=== PATIENT | female | born 1960 | race Caucasian/White ===

== ENCOUNTER 2019-03-15 05:41 | Inpatient (IN) | payer MEDICAID ==
[2019-03-10 13:52] LABS: BASOPHILS % (AUTO) 0.4 % (0-1); EOSINOPHILS % (AUTO) 0.6 % (0-6); LYMPHOCYTES # (AUTO) 1.4 X10'3 (1.1-4.8); MEAN CORPUSCULAR HEMOGLOBIN 33.8 PG (27.0-31.0); MEAN CORPUSCULAR HGB CONC 34.3 g/dL (33.0-36.5); MEAN CORPUSCULAR VOLUME 98.4 FL (78-98); MEAN PLATELET VOLUME 8.1 FL (7.4-10.4); MONOCYTES # (AUTO) 0.5 X10'3 (0-0.9); MONOCYTES % (AUTO) 7.2 % (2-12); NEUTROPHILS # (AUTO) 5.2 X10'3 (1.8-7.7); NEUTROPHILS % (AUTO) 71.8 % (42-75); PRE OP HEMATOCRIT 44.4 % (35.0-45.0); PRE OP HEMOGLOBIN 15.3 g/dL (12.0-16.0); PRE OP PLATELET COUNT 224 X10'3 (140-440); RED BLOOD COUNT 4.52 X10'6 (4.20-5.60); RED CELL DISTRIBUTION WIDTH 12.8 % (11.5-14.5)
[2019-03-10 13:56] LABS: CLARITY,URINE CLEAR (Clear); COLOR,URINE YELLOW (Yellow); GLUCOSE, URINE NEGATIVE (Neg); KETONES,URINE NEGATIVE (Neg); LEUKOCYTE ESTERASE ,URINE TRACE (Neg); NITRITES, URINE NEGATIVE (Neg); OCCULT BLOOD,URINE NEGATIVE (Neg); PROTEIN,URINE NEGATIVE (Neg); UROBILINOGEN,URINE 0.2 E.U/dL (0.2-1.0)
[2019-03-10 14:08] LABS: UA COLLECTION TYPE CLN CATCH MIDSTREAM
[2019-03-10 14:16] LABS: BACTERIA,URINE FEW /HPF (Neg); MUCUS STRANDS FEW /LPF (Neg); SQUAMOUS EPITHELIAL CELL,UR MODERATE /LPF (FEW); WBC,URINE 0-4 /HPF (0-4)
[2019-03-10 14:19] LABS: ALBUMIN 3.5 G/DL (3.4-5.0); ALBUMIN/GLOBULIN RATIO 0.8 (1.1-1.5); ALKALINE PHOSPHATASE 99 IU/L (46-116); BLOOD UREA NITROGEN 14 MG/DL (7-18); BUN/CREATININE RATIO 19.7 (6.6-38.0); CALCIUM 9.3 MG/DL (8.5-10.1); CHLORIDE 103 MMOL/L (99-107); CREATININE 0.71 MG/DL (0.40-0.90); PRE OP ALT 51 U/L (30-65); PRE OP ANION GAP 9 (8-16); PRE OP AST 27 U/L (10-37); PRE OP BILIRUB, TOTAL 0.5 MG/DL (0.0-1.0); PRE OP GLUCOSE 118 MG/DL (70-104); PRE OP POTASSIUM 3.5 MMOL/L (3.4-5.1); PRE OP SODIUM 139 MMOL/L (135-145); TOTAL CARBON DIOXIDE 26.6 MMOL/L (24-32); TOTAL PROTEIN 7.9 G/DL (6.4-8.2); eGFR 84 ML/MIN
[~2019-03-15] VITALS: Ht 165.1 cm; Wt 75.8 kg
[2019-03-15] VITALS (15 sets, daily range): BP systolic 122–157; BP diastolic 67–86
[~2019-03-15 05:41] MED LIST: ATOR10TA70 PO; BUPR150T6 PO; LISI30TA4 PO; MULT-1085 PO; cefazolin/dext.iso 2gm/100 ML IV ONE; famotidine 20mg tablet PO ONE; gabapentin 400mg capsule PO ONE; mupirocin 2% nasal ointment 1gm UD NS ONE; ringers solution, lacted 1,000 ML IV SCH
[2019-03-15] MEDS ORDERED: LIDOcaine 1% (10mg/ml) 2ml vial ONE (06:00)
[2019-03-15] MEDS ORDERED: sevoflurane 250ml liquid IH ONE (06:54)
[2019-03-15] MEDS ORDERED: ondansetron/PF 4mg/2ml inj ONE (06:54)
[2019-03-15] MEDS ORDERED: midazolam 2 mg/2 ml injection ONE ×4 (06:57→07:02)
[2019-03-15] MEDS ORDERED: fentaNYL /PF 50mcg/ml 5ml ampule ONE ×2 (06:58→07:33)
[2019-03-15] MEDS ORDERED: rocuronium 10mg/ml inj IV ONE ×2 (07:14→07:19)
[2019-03-15] MEDS ORDERED: propofol inj 20 ML IV ONE (07:15)
[2019-03-15] MEDS ORDERED: dexamethasone sod phosphate 4mg/ml inj. ONE (07:15)
[2019-03-15] MEDS ORDERED: glycopyrrolate 0.2mg/ml inj ONE (07:15)
[2019-03-15] MEDS ORDERED: LIDOcaine 2% (20mg/ml) 5ml vial ONE (07:15)
[2019-03-15] MEDS ORDERED: neostigmine methylsulfate 1 MG/ML 10ml vial ONE (07:16)
[2019-03-15] MEDS ORDERED: labetalol 5mg/ml 20ml inj. IV ONE (07:35)
[2019-03-15] MEDS ORDERED: hydrALAZINE 20mg/ml inj. IV ONE (07:41)
[2019-03-15] MEDS ORDERED: ringers solution, lacted 1,000 ML IV SCH (07:44)
[2019-03-15] MEDS ORDERED: labetalol 20mg/4ml (5mg/ml) syringe IV PRN (07:45)
[2019-03-15] MEDS ORDERED: ondansetron/PF 4mg/2ml inj IV PRN ×2 (07:45→09:25)
[2019-03-15] MEDS ORDERED: fentaNYL/PF 50MCG/1 ML 2ML syringe IV PRN ×2 (07:45)
[2019-03-15] MEDS ORDERED: morphine 4 MG/ML inj SYRINge IV PRN ×3 (07:45→09:25)
[2019-03-15] MEDS ORDERED: hydrALAZINE 20mg/ml inj. IV PRN (07:45)
[2019-03-15] MEDS ORDERED: ROPIVAcaine 0.5% (5mg/ml) 30ml vial ONE (08:54)
[2019-03-15] MEDS ORDERED: acetaminophen 1,000mg/100ml IV 100 ML IV ONE ×2 (08:56)
[2019-03-15] MEDS ORDERED: metoclopramide 5 mg/ml inj IV PRN (09:25)
[2019-03-15] MEDS ORDERED: magnesium hydroxide 30ml (MOM) UD suspension PO PRN (09:25)
--- NOTE | 2019-03-15 09:29 | NUR ---
Received from OR via BED, accompanied by Anesthesiologist DR COELLO and report given by Anesthesiologist. PT DROWSY, NO S/S OF DISTRESS/DISCOMFORT, CHEST W/MEDIASTINUM ISLAND DRSG COVERING INCISION, CDI, CT TO MEDIASTINUM W/S/S DRAINAGE, AIR LEAK NOTED, DR NICE AWARE, CXR OBTAINED, ABG DRAWN AND RESULTED, PT AWAKE, DENIES PAIN, PLACED ON NC 1 LITER. Addendum: 03/15/19 at 1003 by Michelle Kohler RN Amended: Links added.
[2019-03-15 09:50] LABS: ABG BASE EXCESS -3.8 mmol/L (-2.0-3.0); ABG HCO3 22.6 mmol/L (22.0-26.0); ABG OXYGEN SATURATION 96.8 % (95-98); ABG PCO2 (T) 46.5 mmHg (32.0-45.0); ABG PH (T) 7.305 (7.350-7.450); FCOHb 1.2 % (0.5-1.5); FLOW 15 L/min; FMetHb 0.2 % (0.3-1.12); FO2Hb 95.4 % (94-100); TOTAL HEMOGLOBIN 13.4 G/dl (12.0-16.0)
--- NOTE | 2019-03-15 09:55 | NUR ---
SWITCHED PT TO NC 1LPM FOR SPOT OF 96% FROM SIMPLE MASK AT 15LPM PER ABG RESULTS MELANIE BOWLING
[2019-03-15] MEDS: morphine 4 MG/ML inj SYRINge IV PRN ×2 (10:07→10:13)
--- NOTE | 2019-03-15 10:50 | NUR ---
ERROR IN PAIN MEDICATION ASSESSMENT, CHEST PAIN IS ANTERIOR, MIDLINE. Addendum: 03/15/19 at 1050 by Michelle Kohler RN Amended: Links added.
[2019-03-15] MEDS: albuterol 2.5 MG/3 ML nebule NEB SCH ×4 (11:00→23:00)
--- NOTE | 2019-03-15 11:09 | NUR ---
RADIAL ART LINE D/CD AND DRSG APPLIED, PT STATES PAIN TOLERABLE AND IMPROVED, Report called to receiving nurse. Transferred via BED ON CM AND CT TO PORTABLE SUCTION, NO Belongings, RECEIVING RN AT BEDSIDE TO RECEIVE PT, PTS AND FAMILY PRESENT. Special Issues communicated to receiving nurse. YES. Addendum: 03/15/19 at 1123 by Michelle Kohler RN Amended: Links added.
[2019-03-15 12:43] LABS: BASOPHILS % (AUTO) 0.2 % (0-1); EOSINOPHILS % (AUTO) 0 % (0-6); HEMATOCRIT 40.8 % (35.0-45.0); HEMOGLOBIN 13.7 g/dl (12.0-16.0); LYMPHOCYTES # (AUTO) 0.7 X10'3 (1.1-4.8); LYMPHOCYTES % (AUTO) 5.6 % (21-51); MEAN CORPUSCULAR HEMOGLOBIN 33.4 PG (27.0-31.0); MEAN CORPUSCULAR HGB CONC 33.5 g/dL (33.0-36.5); MEAN CORPUSCULAR VOLUME 99.5 FL (78-98); MEAN PLATELET VOLUME 8.4 FL (7.4-10.4); MONOCYTES # (AUTO) 0.2 X10'3 (0-0.9); MONOCYTES % (AUTO) 1.9 % (2-12); NEUTROPHILS # (AUTO) 11.7 X10'3 (1.8-7.7); NEUTROPHILS % (AUTO) 92.3 % (42-75); PLATELET COUNT 190 X10'3 (140-440); WHITE BLOOD COUNT 12.7 X10'3 (4.5-11.0)
[2019-03-15 12:45] LABS: ALBUMIN 3.2 G/DL (3.4-5.0); ANION GAP 7 (8-16); BLOOD UREA NITROGEN 11 MG/DL (7-18); BUN/CREATININE RATIO 15.3 (6.6-38.0); CALCIUM 8.9 MG/DL (8.5-10.1); CHLORIDE 107 MMOL/L (99-107); CREATININE 0.72 MG/DL (0.40-0.90); GLUCOSE 171 MG/DL (70-104); SODIUM 141 MMOL/L (135-145); TOTAL CARBON DIOXIDE 27.1 MMOL/L (24-32); eGFR 83 ML/MIN
[2019-03-15 12:50] LABS: POTASSIUM 4.3 MMOL/L (3.5-5.1)
[2019-03-15] MEDS: ketorolac tromethamine 15mg/ml inj. IV SCH ×2 (14:21→19:36)
[2019-03-15] MEDS: ceFAZolin 1GM/D5W- ADD-VANTAGE 50 ML IV SCH (16:44)
--- NOTE | 2019-03-15 18:26 | NUR ---
Problems reprioritized. Patient report given, questions answered & plan of care reviewed with Mago LOMELI and Suly LOMELI.
--- NOTE | 2019-03-15 18:27 | NUR ---
Orienteer documentation: I have reviewed and agree with all interventions, assessments performed and documented by Jacki LOMELI.
--- NOTE | 2019-03-15 18:30 | NUR ---
Patient in room MED 316. I have received report from ARMANI Allen and had the opportunity to ask questions and assume patient care.
[2019-03-15] MEDS: gabapentin 300mg capsule PO SCH (19:38)
[2019-03-15] MEDS: sennosides/docusate sodium tablet PO SCH (20:00)
[2019-03-15] MEDS: docusate sod 100mg capsule PO SCH (20:00)
[2019-03-16] MEDS: ceFAZolin 1GM/D5W- ADD-VANTAGE 50 ML IV SCH (00:24)
[2019-03-16 02:00] VITALS: BP 128/66
[2019-03-16] MEDS: ketorolac tromethamine 15mg/ml inj. IV SCH ×2 (02:11→07:31)
--- NOTE | 2019-03-16 02:46 | NUR ---
Patient in room MED 316. I have received report from Alejandro LOMELI and had the opportunity to ask questions and assume patient care. Addendum: 03/16/19 at 0608 by Suly Escalona RN wrong time, received report from Alejandro LOMELI at 1800 on 03/15/19 Patient in room MED 316. I have received report from Alejandro LOMELI and had the opportunity to ask questions and assume patient care.
[2019-03-16] MEDS: albuterol 2.5 MG/3 ML nebule NEB SCH ×6 (03:00→22:34)
--- NOTE | 2019-03-16 05:48 | NUR ---
Orienteer documentation: I have reviewed and agree with all interventions, assessments performed and documented by ARMANI Tubbs. Orienteer Medication Administration: For this medication-pass time frame, all medication were reviewed, dispensed, administered and documented per hospital policy by ARMANI Tubbs.
[2019-03-16 06:00] VITALS: BP 162/80
--- NOTE | 2019-03-16 06:28 | NUR ---
Problems reprioritized. Patient report given, questions answered & plan of care reviewed with ARMANI Allen.
--- NOTE | 2019-03-16 06:36 | NUR ---
Patient in room MED 316. I have received report from Dominick and had the opportunity to ask questions and assume patient care.
[2019-03-16] MEDS ORDERED: furosemide 40mg/4ml inj IV ONE (07:10)
[2019-03-16] MEDS: lisinopril 10 MG tablet PO SCH (07:25)
[2019-03-16] MEDS: buPROPion SR 150mg tablet PO SCH (07:27)
[2019-03-16] MEDS: gabapentin 300mg capsule PO SCH ×2 (07:27→20:09)
[2019-03-16] MEDS: atorvastatin 10mg tablet PO SCH (07:27)
[2019-03-16] MEDS: multivitamins, therapeutics tablet PO SCH (07:28)
[2019-03-16] MEDS: docusate sod 100mg capsule PO SCH ×2 (07:30→20:09)
[2019-03-16] MEDS: sennosides/docusate sodium tablet PO SCH ×2 (07:37→20:09)
[2019-03-16] MEDS ORDERED: ALPRAZolam 0.25mg tablet PO PRN (08:40)
[2019-03-16 10:02] LABS: ALBUMIN 3.3 G/DL (3.4-5.0); ANION GAP 8 (8-16); BLOOD UREA NITROGEN 11 MG/DL (7-18); BUN/CREATININE RATIO 11.6 (6.6-38.0); CALCIUM 9.2 MG/DL (8.5-10.1); CHLORIDE 106 MMOL/L (99-107); CREATININE 0.95 MG/DL (0.40-0.90); GLUCOSE 164 MG/DL (70-104); POTASSIUM 3.4 MMOL/L (3.5-5.1); SODIUM 142 MMOL/L (135-145); TOTAL CARBON DIOXIDE 28.4 MMOL/L (24-32); eGFR 60 ML/MIN
[2019-03-16] MEDS ORDERED: magnesium 2GM in 50ml NS 50 ML IV PRN (10:30)
[2019-03-16] MEDS ORDERED: potassium CL 10mEq/100ml bag 100 ML IV PRN (10:30)
[2019-03-16] MEDS ORDERED: potassium Cl 20 mEq SR tablet PO PRN (10:30)
[2019-03-16] MEDS ORDERED: magnesium 4gm in 100ml NS 100 ML IV PRN (10:30)
[2019-03-16] MEDS ORDERED: magnesium Cl slow-release 64mg tablet PO PRN (10:30)
[2019-03-16 11:00] VITALS: BP 106/69
[2019-03-16 11:11] LABS: MAGNESIUM 2.1 MG/DL (1.5-2.4)
--- NOTE | 2019-03-16 12:00 | NUR ---
Patient in room MED 316. I have received report from Alejandro LOMELI and had the opportunity to ask questions and assume patient care.
[2019-03-16] MEDS: potassium Cl 20 mEq SR tablet PO PRN ×3 (12:06→20:10)
[2019-03-16] MEDS: HYDROcodone/acetaminophen 10/325mg tab PO PRN ×3 (13:17→22:17)
[2019-03-16 15:25] VITALS: BP 135/73
[2019-03-16 18:00] VITALS: BP 150/98
--- NOTE | 2019-03-16 18:22 | NUR ---
Patient in room MED 316. I have received report from Himanshu and had the opportunity to ask questions and assume patient care.
--- NOTE | 2019-03-16 18:23 | NUR ---
Problems reprioritized. Patient report given, questions answered & plan of care reviewed with ARMANI Tubbs.
--- NOTE | 2019-03-16 18:23 | NUR ---
Orientee documentation: I have reviewed and agree with all interventions, assessments performed and documented by Jennifer LOMELI. Orientee Medication Administration: For this medication-pass time frame, all medication were reviewed, dispensed, administered and documented per hospital policy by Jennifer LOMELI.
--- NOTE | 2019-03-16 20:22 | NUR ---
Respiratory request for LauraA Lena York. please do RT TX before 2300 if possible, please and thanks. ACCE [id number], Suly RN Will bundle care per patient request
[2019-03-16 22:00] VITALS: BP 150/72
[2019-03-17] VITALS (8 sets, daily range): BP systolic 99–167; BP diastolic 64–90
[2019-03-17] MEDS: HYDROcodone/acetaminophen 10/325mg tab PO PRN ×3 (02:22→19:26)
[2019-03-17] MEDS: albuterol 2.5 MG/3 ML nebule NEB SCH ×6 (02:47→23:05)
[2019-03-17 06:02] LABS: ALBUMIN 2.9 G/DL (3.4-5.0); ANION GAP 11 (8-16); BLOOD UREA NITROGEN 7 MG/DL (7-18); BUN/CREATININE RATIO 12.3 (6.6-38.0); CALCIUM 9.1 MG/DL (8.5-10.1); CHLORIDE 107 MMOL/L (99-107); CREATININE 0.57 MG/DL (0.40-0.90); GLUCOSE 109 MG/DL (70-104); MAGNESIUM 2.2 MG/DL (1.5-2.4); POTASSIUM 4.5 MMOL/L (3.5-5.1); SODIUM 141 MMOL/L (135-145); eGFR > 90 ML/MIN
--- NOTE | 2019-03-17 06:25 | NUR ---
Problems reprioritized. Patient report given, questions answered & plan of care reviewed with Alejandro LOMELI.
--- NOTE | 2019-03-17 06:54 | NUR ---
Patient in room MED 316. I have received report from ARMANI Tubbs and had the opportunity to ask questions and assume patient care.
[2019-03-17] MEDS: sennosides/docusate sodium tablet PO SCH ×2 (08:20→19:26)
[2019-03-17] MEDS: docusate sod 100mg capsule PO SCH ×2 (08:21→19:26)
[2019-03-17] MEDS: buPROPion SR 150mg tablet PO SCH (08:23)
[2019-03-17] MEDS: multivitamins, therapeutics tablet PO SCH (08:23)
[2019-03-17] MEDS: atorvastatin 10mg tablet PO SCH (08:23)
[2019-03-17] MEDS: gabapentin 300mg capsule PO SCH (08:24)
[2019-03-17] MEDS: lisinopril 10 MG tablet PO SCH (08:25)
--- NOTE | 2019-03-17 17:54 | NUR ---
Orienteer documentation: I have reviewed and agree with all interventions, assessments performed and documented by Jacki LOMELI.
--- NOTE | 2019-03-17 18:15 | NUR ---
Patient in room MED 316. I have received report from Jacki LOMELI and had the opportunity to ask questions and assume patient care. Patient sitting in chair visiting with , will continue to monitor closely.
--- NOTE | 2019-03-17 18:39 | NUR ---
Problems reprioritized. Patient report given, questions answered & plan of care reviewed with ARMANI Whitt.
--- NOTE | 2019-03-17 18:44 | NUR ---
Orienteer documentation: I have reviewed and agree with all interventions, assessments performed and documented by Jacki LOMELI.
[2019-03-18] MEDS: albuterol 2.5 MG/3 ML nebule NEB SCH ×3 (02:52→10:47)
[2019-03-18 03:00] VITALS: BP 117/76
[2019-03-18] MEDS: HYDROcodone/acetaminophen 10/325mg tab PO PRN ×2 (04:48→12:06)
[2019-03-18 05:54] LABS: ALBUMIN 2.9 G/DL (3.4-5.0); ANION GAP 8 (8-16); BLOOD UREA NITROGEN 8 MG/DL (7-18); BUN/CREATININE RATIO 11.1 (6.6-38.0); CALCIUM 9.1 MG/DL (8.5-10.1); CHLORIDE 104 MMOL/L (99-107); CREATININE 0.72 MG/DL (0.40-0.90); GLUCOSE 123 MG/DL (70-104); MAGNESIUM 2.2 MG/DL (1.5-2.4); POTASSIUM 3.7 MMOL/L (3.5-5.1); SODIUM 139 MMOL/L (135-145); TOTAL CARBON DIOXIDE 26.7 MMOL/L (24-32); eGFR 83 ML/MIN
--- NOTE | 2019-03-18 06:20 | NUR ---
Patient in room MED 316. I have received report from Peri and had the opportunity to ask questions and assume patient care.
[2019-03-18 06:30] VITALS: BP 128/79
[2019-03-18] MEDS: lisinopril 10 MG tablet PO SCH (07:24)
[2019-03-18] MEDS: multivitamins, therapeutics tablet PO SCH (07:24)
[2019-03-18] MEDS: buPROPion SR 150mg tablet PO SCH (07:24)
[2019-03-18] MEDS: atorvastatin 10mg tablet PO SCH (07:24)
[2019-03-18] MEDS: sennosides/docusate sodium tablet PO SCH (07:25)
[2019-03-18] MEDS: docusate sod 100mg capsule PO SCH (07:25)
[2019-03-18 07:37] LABS: BASOPHILS # (AUTO) 0.1 X10'3 (0-0.2); BASOPHILS % (AUTO) 0.6 % (0-1); EOSINOPHILS # (AUTO) 0.1 X10'3 (0-0.9); EOSINOPHILS % (AUTO) 0.9 % (0-6); HEMATOCRIT 36.9 % (35.0-45.0); HEMOGLOBIN 12.6 g/dl (12.0-16.0); LYMPHOCYTES # (AUTO) 1.6 X10'3 (1.1-4.8); LYMPHOCYTES % (AUTO) 17.7 % (21-51); MEAN CORPUSCULAR HEMOGLOBIN 33.5 PG (27.0-31.0); MEAN CORPUSCULAR VOLUME 98.5 FL (78-98); MEAN PLATELET VOLUME 8.4 FL (7.4-10.4); MONOCYTES # (AUTO) 0.7 X10'3 (0-0.9); NEUTROPHILS # (AUTO) 6.6 X10'3 (1.8-7.7); NEUTROPHILS % (AUTO) 72.8 % (42-75); PLATELET COUNT 200 X10'3 (140-440); RED BLOOD COUNT 3.75 X10'6 (4.20-5.60); RED CELL DISTRIBUTION WIDTH 12.8 % (11.5-14.5); WHITE BLOOD COUNT 9.1 X10'3 (4.5-11.0)
[2019-03-18 11:00] VITALS: BP 107/69
[2019-03-18] MEDS ORDERED: COL100C PO (13:07)
--- NOTE | 2019-03-18 14:35 | NUR ---
[facility] delivered discharge meds to pt at bedside. IV dc'd. Follow up appointments, wound care, and home care gone over with pt and spouse. Both verbalize understanding. Discharged home via wc in stable condition.
== END 2019-03-18 14:23 | disposition home health service (06) | DRG 405 ==
LOC: PAS IN 05:41 → EDSTATUS 07:30 → MED 3N 11:15
PROVIDERS: ADMIT Thoracic Surgery (Cardiothoracic Vascular Surgery); ATTEND Thoracic Surgery (Cardiothoracic Vascular Surgery)
PROC: 07B70ZZ Excision of Thorax Lymphatic, Open Approach (ICD-10-PCS; 2019-03-15)
PROC: 0WBC0ZZ Excision of Mediastinum, Open Approach (ICD-10-PCS; principal; 2019-03-15 06:54)
DX: E07.9 Disorder of thyroid, unspecified (principal); J98.59 Other diseases of mediastinum, not elsewhere classified; E78.00 Pure hypercholesterolemia, unspecified; F12.90 Cannabis use, unspecified, uncomplicated; I10 Essential (primary) hypertension; F17.210 Nicotine dependence, cigarettes, uncomplicated; F32.9 Major depressive disorder, single episode, unspecified; Z90.49 Acquired absence of other specified parts of digestive tract; Z80.1 Family history of malignant neoplasm of trachea, bronchus and lung
CPT/HCPCS: 36415; 36600; 71045; 71046; 80048; 80053; 81001; 82803; 82948; 83036; 83735; 84436; 84443; 85018; 85025; 85610; 85730; 86885; 86900; 86901; 86920; 87070; 87075; 87081; 87088; 87102; 93005; 94640; 94760; 97110; 97116; 97161; 97530; A4618; A6258; A6449; A7000; A7048; C1713; G0378; J0131; J0360; J0690; J1100; J1885; J1940; J2001; J2250; J2270; J2405; J2704; J2710; J2795; J3010; J3490; J7040; J7120

== ENCOUNTER 2022-09-23 15:19 | Emergency (ER) | payer MEDICAID ==
[~2022-09-23] VITALS: Ht 166.4 cm; Wt 67.7 kg
[~2022-09-23 15:19] MED LIST changes: +BUPR-317 PO; -BUPR150T6 PO; +COL100C PO; -cefazolin/dext.iso 2gm/100 ML IV ONE; -famotidine 20mg tablet PO ONE; -gabapentin 400mg capsule PO ONE; -mupirocin 2% nasal ointment 1gm UD NS ONE; -ringers solution, lacted 1,000 ML IV SCH
[2022-09-23 15:29] VITALS: BP 153/81
[2022-09-23] MEDS ORDERED: triamcinolone acetonide 40mg/ml inj IM ONE (16:45)
== END 2022-09-23 17:00 | disposition home or self-care (01) ==
LOC: ER 15:20
DX: R21 Rash and other nonspecific skin eruption (principal); M79.601 Pain in right arm; M79.602 Pain in left arm
CPT/HCPCS: 96372; 99283; J3301